=== PATIENT | female | born 1970 | race Caucasian/White ===

== ENCOUNTER 2020-07-15 15:20 | Outpatient (REF) | payer BC, SELFPAY ==
--- NOTE | 2020-07-15 14:20 | PAPFT_PTH ---
PATIENT: Anai Bose LOC: [facility] U#:[id number] AGE/SX: 50/F ROOM: RE07/15/[address]: Gia Combs : 1970 BED: DIS: 07/15/2020 SPEC #: [id number] RECD: 07/15/20 17:29 STATUS: LIGIA REAncelmo #: [id number] DESEAN: 07/15/20 14:[address]: Gia Combs DEPT: [facility] Cytology RECD BY: Franci Weber ENTERED: 07/15/20 17:29 SP TYPE: PAPFT JOY DR: Unknown,Unknown Tissues: 1 - CX/ENDOCX FOR PAP SMEARS Procedures: PAP THIN PREP/[facility] Screening HPV DNA PROBE Comments: [id number]
== END 2020-07-15 15:21 | disposition home or self-care (01) ==
LOC: LBN 15:20
PROVIDERS: Visit Provider Obstetrics & Gynecology Gynecology
DX: Z12.4 Encounter for screening for malignant neoplasm of cervix (principal); Z11.51 Encounter for screening for human papillomavirus (HPV)
CPT/HCPCS: 88142; 87624

== ENCOUNTER 2020-09-12 04:12 | Outpatient (CLI) | payer BC, SELFPAY ==
--- NOTE | 2020-09-12 | DI.MAMMO_ITS ---
Exam(s) MAMMO SCREENING EXAM: MAMMO SCREENING CLINICAL HISTORY: screening,Z12.39 TECHNIQUE: Bilateral full field digital CC and MLO mammographic images were obtained with 3D tomosyn thesis and utilizing computer aided detection (CAD). COMPARISON: Available for comparison. FINDINGS: Masses/Architectural Distortion: None seen. Microcalcifications: No suspicious pleomorphic-type are seen. Skin Thickening/Nipple Retraction: None. IMPRESSION: 1. No significant interval change with no specific features of malignancy noted. 2. Unless there is more urgent need, screening mammography is recommended, as per [employer] guidelines. BI-RADS Category 1 - Negative Breast Density - Category C - Heterogeneously dense Breast density category C or D implies that the patient has dense breast tissue. Dense breast tissue is very common and is not abnormal but dense breast tissue can make it harder to find cancer on a ma mmogram. Also, dense breast tissue may increase their breast cancer risk. This information about the result of the mammogram report was provided to the patient to raise their awareness. Use this report when you speak with the patient about their risks for breast cancer, which includes their family hist ory. At that time, you may recommend for more screening tests (Ultrasound or MRI) as they might be us eful based on their risk. A negative radiographic report should not delay biopsy if a dominant or clinically suspicious mass is present. Up to ten percent of cancers are not identified on mammography. A negative report may reinforce clinical impression. Adenosis and dense breasts may obscure an underlying neoplasm. False positive reports average 6 to 10%. Patient will receive a letter notifying them of these results.
--- NOTE | 2020-09-12 | DI.US_ITS ---
Exam(s) US PELVIS TRANSVAGINAL EXAM: US PELVIS TRANSVAGINAL CLINICAL HISTORY: abdominal cramping, fullness,ABD PAIN,R10.9,R19.8. TECHNIQUE: Transabdominal and transvaginal pelvic ultrasound was performed using standard protocol. COMPARISON: No exams were available for comparison FINDINGS: KIDNEYS: Kidneys are symmetric in size. No evidence of renal calculi. No evidence of hydronephrosis. No renal mass or cyst identified. UTERUS: Position: Anteverted. Size: 10.6 long by 3.8 AP by 5.3 transverse cm Endometrium: 0.3 cm. Normal for patient's menstrual status. Myometrium: There is a 1.1 x 0.8 x 1.2 cm hypoechoic mass in the anterior body of the uterus likely r eflecting of fibroid. Cervix: Unremarkable. OVARIES: Right: 2.6 x 1.9 x 2 cm Cyst or mass: Functional cysts are present. The largest measures 2.1 cm. Left: 3.5 x 2 x 1.5 cm Cyst or mass: Functional cysts are present. The largest measures 2.6 cm. DOPPLER: Color: Symmetric and uniform flow to both ovaries. No hyperemia. Duplex: Normal ovarian arterial waveforms visualized. CUL-DE-SAC: Free fluid: Trace amount of free fluid adjacent to the left ovary. Other: None. IMPRESSION: 1. Normal sonographic appearance of the kidneys. 2. Fibroid uterus with normal endometrial stripe. 3. Unremarkable bilateral ovaries. DATA REPOSITORY:
== END 2020-09-12 04:32 ==
PROVIDERS: Visit Provider Obstetrics & Gynecology Gynecology
DX: Z12.31 Encounter for screening mammogram for malignant neoplasm of breast (principal); R10.9 Unspecified abdominal pain; R19.8 Other specified symptoms and signs involving the digestive system and abdomen; D25.9 Leiomyoma of uterus, unspecified
CPT/HCPCS: 77063; 77067; 76830; 76856